=== PATIENT | male | born 1995 | race Caucasian/White ===

== ENCOUNTER 2020-12-21 15:58 | Emergency (ER) | payer BC ==
[~2020-12-21] VITALS: Ht 182.9 cm; Wt 115.2 kg
--- NOTE | 2020-12-21 16:10 | NUR ---
VIVEK FROM WORK OF PLACE TO ER BED 15. ALERT, AWAKE BUT DISORRIENTED. NOT IN RESP DISTRESS. BROUGHT IN BECAUSE PT WAS FOUND UNCONSCIOUS. PT IS REPORTED TO HAVE HX OF SEIZURE. PT WAS REPORTED TO HAVE RECEIVED CPR BECAUSE HIS CO WORKER THOUGHT HE HAD A CARDAIC ARREST. PROVIDER AT THE BEDSIDE ROSARIO BURK. AWAITING ORDERS
--- NOTE | 2020-12-21 16:16 | NUR ---
SEEN AND EXAMINED BY WILMAR BHAT.
--- NOTE | 2020-12-21 16:18 | NUR ---
URINE SPECIMEN COLLECTED AND SENT TO LAB.
--- NOTE | 2020-12-21 16:21 | NUR ---
Jigna mcclure in [facility] - 12/21/20 at 1639 by ASHA PT IS WHEELED TO CT SCAN TIGRE MAR.
--- NOTE | 2020-12-21 16:40 | NUR ---
Patient does not wish to proceed with medical care recommended by WILMAR BHAT. Patient given information related to possible complications, up to and including , which could occur as a result of leaving the hospital at this time. Patient verbalizes understanding of risks involved due to leaving against medical advice. Patient has signed AMA form.
[2020-12-21 16:51] VITALS: BP 137/74
--- NOTE | 2020-12-21 16:51 | NUR ---
IV removed. Catheter intact and site benign. Pressure and 4x4 applied to site. No bleeding noted.
[2020-12-21] MEDS ORDERED: IV NS 0.9% 1,000 ML BAG IV ONE (17:00)
== END 2020-12-21 16:52 | disposition left against medical advice (07) ==
LOC: ER 16:01
DX: R56.9 Unspecified convulsions (principal)
CPT/HCPCS: 82962-TC

== ENCOUNTER 2022-02-08 18:04 | Emergency (ER) | payer BC ==
[~2022-02-08] VITALS: Ht 182.9 cm; Wt 108.9 kg
[2022-02-08] MEDS ORDERED: TDAP [DIPH/PERTUSSIS/TET] 0.5 ML VIAL IM ONE ×2 (19:00→19:09)
[2022-02-08] MEDS ORDERED: LIDOCAINE HCL/PF 1% 30 ML VIAL TP ONE (19:00)
[2022-02-08 21:31] VITALS: BP 126/70
--- NOTE | 2022-02-08 21:31 | NUR ---
Patient discharged to home in stable condition. Written and verbal after care instructions given. Patient verbalizes understanding of instruction.
== END 2022-02-08 21:32 | disposition home or self-care (01) ==
LOC: ER 18:06
DX: S01.81XA Laceration without foreign body of other part of head, initial encounter (principal); X58.XXXA Exposure to other specified factors, initial encounter; Y93.89 Activity, other specified; Y92.89 Other specified places as the place of occurrence of the external cause; Y99.8 Other external cause status
CPT/HCPCS: 99284; 70450; 12002; 90471; 90715; J3490; A6403